=== PATIENT | female | born 1985 | race Caucasian/White ===

== ENCOUNTER 2020-09-25 07:31 | Outpatient (CLI) | payer BC ==
[~2020-09-25] VITALS: Ht 162.6 cm; Wt 79.9 kg
[2020-09-25 08:04] VITALS: BP 117/95; PULSE 121; TEMP 97.9
[2020-09-25] MEDS ORDERED: GLUCOPHAGE500 MG/TAB PO (08:11)
[2020-09-25] MEDS ORDERED: ALDACTONE50 MG PO ×2 (08:12→08:13)
[2020-09-25] MEDS ORDERED: MINOCYCLIN100 MG/CAP PO (08:13)
[2020-09-25] MEDS ORDERED: CRESTOR 10MG10 MG PO (08:14)
[2020-09-25] MEDS ORDERED: THE MEDICINE S200 M2 PO (08:15)
[2020-09-25] MEDS ORDERED: ZYRTEC 10MG10 MG PO (08:16)
[2020-09-25] MEDS ORDERED: TOPAMAX 25MG25 M1 PO (08:16)
[2020-09-25] MEDS ORDERED: ADIPEX-P37.5 M2 PO (08:17)
[2020-09-25] MEDS ORDERED: TOPROL XL 25MG25 MG PO (08:18)
[2020-09-25] MEDS ORDERED: STELARA45 MG/0.1 SQ (08:18)
[2020-09-25] MEDS ORDERED: IMITREX50 MG PO (08:19)
[2020-09-25] MEDS ORDERED: DESYREL 50MG50 MG PO (08:20)
[2020-09-25] MEDS ORDERED: XANAX .25M0.25 MG/TA PO (08:20)
[2020-09-25 11:15] VITALS: BP 119/84; PULSE 102
--- NOTE | 2020-09-25 11:24 | NUR ---
Pt ready to go home, pt verbalized understanding of dc and fu instructions. 22g saline lock to lac is dc'd with cath intact, dressing applied. i ambulated with pt to exit. no concerns at time of departure.
== END 2020-09-25 14:38 | disposition home or self-care (01) ==
LOC: COL.CAR 07:31
DX: R00.2 Palpitations (principal); R06.02 Shortness of breath; R07.9 Chest pain, unspecified; R00.0 Tachycardia, unspecified; E78.2 Mixed hyperlipidemia; Z79.899 Other long term (current) drug therapy; Z79.84 Long term (current) use of oral hypoglycemic drugs; Z20.822 Contact with and (suspected) exposure to COVID-19; Z82.49 Family history of ischemic heart disease and other diseases of the circulatory system; Z82.3 Family history of stroke

== ENCOUNTER 2021-02-22 07:52 | Outpatient (CLI) | payer BC ==
[~2021-02-22] VITALS: Ht 162.6 cm; Wt 72.2 kg
[~2021-02-22 07:52] MED LIST: ADIPEX-P37.5 M2 PO; ALDACTONE50 MG PO; CRESTOR 10MG10 MG PO; DESYREL 50MG50 MG PO; GLUCOPHAGE500 MG/TAB PO; IMITREX50 MG PO; MINOCYCLIN100 MG/CAP PO; STELARA45 MG/0.1 SQ; THE MEDICINE S200 M2 PO; TOPAMAX 25MG25 M1 PO; TOPROL XL 25MG25 MG PO; XANAX .25M0.25 MG/TA PO; ZYRTEC 10MG10 MG PO
[2021-02-22 08:33] LABS: HEMATOCRIT 42.9 % (37.0-47.0); HEMOGLOBIN 13.8 g/dl (12.5-16.0); MEAN CELL VOLUME 90 fl (80.0-100.0); MEAN CORPUSCULAR HEMOGLOBIN 29 pg (27.0-31.0); MEAN CORPUSCULAR HGB CONC 32 g/dl (33.0-37.0); MEAN PLATELET VOLUME 11.1 fl (7.4-10.4); PLATELET COUNT 328 K/mm3 (130-400); RED BLOOD COUNT 4.78 M/mm3 (4.10-5.30); REDCELL DISTRIBUTION WIDTH-CV 13.3 % (11.5-14.5)
[2021-02-22] MEDS ORDERED: AIMOVIG AU70 MG/1 M1 SQ (08:43)
[2021-02-22 08:53] LABS: CREATININE, serum 0.74 mg/dL (0.57-1.11); POTASSIUM 3.8 mmol/L (3.5-4.5)
[2021-02-22 10:45] VITALS: BP 112/78; PULSE 81
[2021-02-22 11:00] VITALS: BP 113/84; PULSE 81
[2021-02-22 11:15] VITALS: BP 109/79; PULSE 78
[2021-02-22 11:30] VITALS: BP 107/80; PULSE 85
[2021-02-22 11:45] VITALS: BP 115/78; PULSE 78
[2021-02-22 12:00] VITALS: BP 111/83; PULSE 81
--- NOTE | 2021-02-22 12:33 | NUR ---
Discussed discharge instructions with patient. She had questions regard follow up, call made to [facility], patient is aware she needs to call the office and reschedule her follow up date. She stated she wanted to see Dr. Silver before she left, and elected to stay until he was available to see her, and is aware it could be a lengthy wait as he is in a procedure. All monitors DCd, patient changed into clothing, went to bathroom, IV DCd intact. Patient will be escorted to front entrance via wheelchair after speaking with
== END 2021-02-22 12:00 ==
LOC: COL.RAD 07:52
PROVIDERS: Internal Medicine Cardiovascular Disease
DX: I25.3 Aneurysm of heart (principal)
CPT/HCPCS: J2704

== ENCOUNTER → 2021-07-04 | Outpatient (CLI) | payer BC ==
[~2021-07-04] MED LIST changes: +AIMOVIG AU70 MG/1 M1 SQ
== END ==
LOC: COL.PUL 12:50
DX: R06.02 Shortness of breath (principal)
CPT/HCPCS: J7674

== ENCOUNTER 2021-10-04 20:29 | Emergency (ER) | payer BC ==
[~2021-10-04] VITALS: Ht 162.6 cm; Wt 75.0 kg
[2021-10-04 20:52] LABS: BASO # 0.1 K/mm3 (0.0-0.2); BASO % 0.5 % (0.0-2.0); EOS # 0.1 K/mm3 (0.0-0.7); EOS % 0.5 % (0.0-4.0); GRAN # 10.7 K/mm3 (1.4-6.5); GRAN % 72.5 % (42.2-75.2); HEMATOCRIT 48.6 % (37.0-47.0); HEMOGLOBIN 15.8 g/dl (12.5-16.0); LYMPH # 2.7 K/mm3 (1.2-3.4); LYMPH % 18.2 % (20.0-51.0); MEAN CELL VOLUME 88 fl (80.0-100.0); MEAN CORPUSCULAR HEMOGLOBIN 29 pg (27-31); MEAN CORPUSCULAR HGB CONC 33 g/dl (33.0-37.0); MEAN PLATELET VOLUME 10.2 fl (7.4-10.4); MONO # 1.2 K/mm3 (0.1-0.6); MONO % 7.9 % (1.7-9.3); PLATELET COUNT 477 K/mm3 (130-400); RED BLOOD COUNT 5.54 M/mm3 (4.10-5.30); REDCELL DISTRIBUTION WIDTH-CV 12.2 % (11.5-14.5)
[2021-10-04 21:04] LABS: ALANINE AMINOTRANSFERASE 33 U/L (0-55); ALBUMIN 4.9 gm/dL (3.5-5.0); ALKALINE PHOSPHATASE 78 U/L (40-150); ANION GAP 19 mmol/L (7-16); AST,SGOT 25 U/L (5-34); BILIRUBIN,TOTAL 0.7 mg/dL (0.2-1.2); BLOOD UREA NITROGEN 15 mg/dL (7-19); CALCIUM 10.5 mg/dL (8.4-10.2); CARBON DIOXIDE 16 mmol/L (22-29); CHLORIDE 105 mmol/L (98-107); GLUCOSE 139 mg/dL (70-99); POTASSIUM 3.9 mmol/L (3.5-4.5); SODIUM 140 mmol/L (136-145); TOTAL PROTEIN 8.6 gm/dL (6.2-8.1)
[2021-10-04 21:24] LABS: THYROID STIMULATING HORMONE 4.361 uIU/mL (0.350-4.940)
[2021-10-04 21:25] LABS: TROPONIN-I < 0.010 ng/mL (0.00-0.033)
[2021-10-04 22:32] VITALS: BP 144/78; PULSE 71
== END 2021-10-04 22:32 | disposition home or self-care (01) ==
LOC: COL.ER 20:29
PROVIDERS: Emergency Medicine
DX: R06.00 Dyspnea, unspecified (principal); R29.0 Tetany; R06.4 Hyperventilation; R00.0 Tachycardia, unspecified; Z28.310 Unvaccinated for COVID-19
CPT/HCPCS: J2060; J7030

== ENCOUNTER → 2021-11-08 | Outpatient (CLI) | payer BC | LOC: COL.RAD 07:13 | DX: K59.09 Other constipation (principal); R07.9 Chest pain, unspecified | CPT/HCPCS: A9541 ==